=== PATIENT | female | born 1965 | race Caucasian/White ===

== ENCOUNTER 2025-04-07 06:57 | Day surgery (SDC) | payer BC ==
[2025-04-04 11:40] VITALS: BMI 23.6
[2025-04-07] MEDS ORDERED: Heparin 5,000 UNITS/ML VIAL ONE (08:07)
[2025-04-07] MEDS ORDERED: Bupivacaine 0.25% HCL 30 ML VIAL ONE (08:55)
[2025-04-07 08:56] LABS: #Basophils 0.04 10x3/uL (0.0-0.2); #Eosinophils 0.45 10x3/uL (0.0-0.7); #Monocytes 0.39 10x3/uL (0.11-0.59); #Neutrophils 1.63 10x3/uL (1.40-6.50); %Basophils 1.0 % (0.0-1.0); %Eosinophils 11.3 % (0.0-10.0); %Lymphocytes 37.1 % (21.0-51.0); %Monocytes 9.8 % (0.0-10.0); %Neutrophils 40.8 % (42.0-75.0); Hematocrit 37.3 % (36.0-47.0); Hemoglobin 12.4 g/dL (12.0-16.0); Mean Corpuscular Hemoglobin 30.5 pg (27.0-31.0); Mean Corpuscular Volume 91.9 fL (78.0-98.0); Platelet Count 151 10x3/uL (130-400); Red Blood Cell (RBC) Count 4.06 mill/uL (4.20-5.40); White Blood Cell (WBC) Count 3.99 10x3/uL (4.8-10.8)
[2025-04-07 09:14] LABS: Anion Gap 15 mmol/L (10-20); BUN (Urea Nitrogen) 14 mg/dL (9.8-20.1); Calc. Creatinine Clearance 97 mL/min (70-130); Calcium 8.7 mg/dL (7.8-10.44); Carbon Dioxide 28 mmol/L (23-31); Chloride 105 mmol/L (98-107); Glucose 91 mg/dL (80-115); Potassium 4.1 mmol/L (3.5-5.1); Sodium 144 mmol/L (136-145)
[2025-04-07] MEDS ORDERED: LevoFLOXacin D5W 500 mg (100 mL) BAG ONE (09:31)
[2025-04-07] MEDS ORDERED: Lidocaine 1% PF 5 ML VIAL ONE (10:02)
[2025-04-07] MEDS ORDERED: PROPOFOL 20 ML ONE (10:02)
[2025-04-07] MEDS ORDERED: Rocuronium Bromide 10 MG/ML (10ML VIAL) ONE (10:02)
[2025-04-07] MEDS ORDERED: Ondansetron PF 4 MG/2 ML Vial ONE ×2 (10:16→16:21)
[2025-04-07] MEDS ORDERED: Glycopyrrolate 0.2 MG/ML 5 ML SYRINGE ONE (10:34)
[2025-04-07] MEDS ORDERED: PHENYLEPHRINE-NS 100 MCG/ML 10 ML SYRINGE ONE (10:47)
[2025-04-07] MEDS ORDERED: Tranexamic Acid 1,000 MG/10 ML VIAL ONE ×2 (10:48→11:13)
[2025-04-07] MEDS ORDERED: HYDROmorphone 2 MG/ML VIAL ONE (15:53)
[2025-04-07] MEDS ORDERED: NEOSTIGMINE 3 MG/3 ML SYRINGE ONE (16:19)
[2025-04-07] MEDS ORDERED: Bacitracin Zinc Ointment 30 gm TUBE ONE (16:32)
[2025-04-07] MEDS ORDERED: HYDROcodone/Acetaminophen 10/325 mg Tablet ONE (17:46)
== END 2025-04-07 18:08 | disposition home or self-care (01) ==
LOC: SDC 06:57
PROVIDERS: ATTEND Plastic Surgery
PROC: 0HPT0JZ Removal of Synthetic Substitute from Right Breast, Open Approach (ICD-10-PCS; principal; 2025-04-07)
PROC: 0HQV0ZZ Repair Bilateral Breast, Open Approach (ICD-10-PCS; principal; 2025-04-07)
PROC: 0HPU0JZ Removal of Synthetic Substitute from Left Breast, Open Approach (ICD-10-PCS; principal; 2025-04-07)
PROC: 0JB80ZZ Excision of Abdomen Subcutaneous Tissue and Fascia, Open Approach (ICD-10-PCS; 2025-04-07)
DX: T85.44XA Capsular contracture of breast implant, initial encounter (principal); N64.1 Fat necrosis of breast; N61.0 Mastitis without abscess; Z96.653 Presence of artificial knee joint, bilateral; Z96.641 Presence of right artificial hip joint; Z90.710 Acquired absence of both cervix and uterus; Z88.6 Allergy status to analgesic agent; Z88.1 Allergy status to other antibiotic agents; Y83.1 Surgical operation with implant of artificial internal device as the cause of abnormal reaction of the patient, or of later complication, without mention of misadventure at the time of the procedure
CPT/HCPCS: 80048; 85025; 88305; 88331; C1889; J0169; J0665; J1100; J1171; J1644; J1956; J2250; J2704; J3010; J3490